=== PATIENT | female | born 1980 | race Caucasian/White ===

== ENCOUNTER 2020-12-16 14:27 | Outpatient (REF) | payer MEDICAID, SELFPAY ==
--- NOTE | ~2020-12-16 | US_ITS ---
EXAMINATION: PELVIC ULTRASOUND CLINICAL INFORMATION: Right lower quadrant pain COMPARISON: None TECHNIQUE: Transabdominal and transvaginal pelvic ultrasound was performed. Transvaginal exam was performed for better visualization of the uterus and ovaries. FINDINGS: The uterus is anteverted and measures 6.2 x 2.9 x 3.8 cm in dimension. No focal uterine lesion is seen. Endometrial thickness is normal measuring 0.3 cm. The ovaries are normal-appearing. The right ovary measures 1.4 x 1.3 x 1.1 cm and the left ovary measures 1.7 x 1.3 x 1.8 cm. There is no fluid in the pelvis. US/US pelvic and transvaginal IMPRESSION: Normal pelvic ultrasound.
== END 2020-12-16 14:28 | disposition home or self-care (01) ==
LOC: HO.US 14:27
PROVIDERS: Visit Provider Internal Medicine
DX: N92.0 Excessive and frequent menstruation with regular cycle (principal)
CPT/HCPCS: 76830; 76856

== ENCOUNTER 2021-01-06 15:00 | Outpatient (REF) | payer MEDICAID, SELFPAY ==
[2021-01-06 15:37] LABS: COVID-19 Test Negative (Negative); IDNOW Serial# 55D5AD1C
== END 2021-01-06 15:01 | disposition home or self-care (01) ==
LOC: HO.LAB 15:00
PROVIDERS: Visit Provider Internal Medicine
DX: Z20.822 Contact with and (suspected) exposure to COVID-19 (principal)
CPT/HCPCS: 36415; 87635; C9803

== ENCOUNTER 2021-06-30 14:38 | Outpatient (REF) | payer MEDICAID, SELFPAY | END 2021-06-30 14:39 | disposition home or self-care (01) | LOC: HO.LAB 14:38 | PROVIDERS: Visit Provider Internal Medicine | DX: Z20.822 Contact with and (suspected) exposure to COVID-19 (principal) | CPT/HCPCS: C9803; U0003; U0005 ==

== ENCOUNTER 2023-02-08 08:32 | Outpatient (REF) | payer MEDICAID, SELFPAY ==
--- NOTE | ~2023-02-08 | US_ITS ---
EXAMINATION: US RETROPERITONEAL LIMITED (RENAL ONLY) CLINICAL INFORMATION: Screening. COMPARISON: CT abdomen and pelvis without contrast dated 09/10/2019. Renal and bladder ultrasound dated 09/10/2019. TECHNIQUE: Real-time imaging of the kidneys. FINDINGS: RIGHT KIDNEY: 11.0 x 3.2 x 4.4 cm (SAG x AP x TRV). The kidney is normal in size, contour, and echogenicity. Renal cortical thickness is normal. No focal parenchymal lesions. Mild pelvocaliectasis. Nonobstructive calculus in the lower pole measuring 0.3 cm. LEFT KIDNEY: 10.8 x 5.6 x 5.0 cm (SAG x AP x TRV). The kidney is normal in size, contour, and echogenicity. Renal cortical thickness is normal. No calculi or focal parenchymal lesions. No hydronephrosis. Mild pelvic fullness without calyectasis. US/US renal BI IMPRESSION: 1. 0.3 cm calculus in the lower pole of the right kidney. 2. Mild right pelvocaliectasis. 3. Mild left pelviectasis. If an obstructive uropathy is suspected, recommend correlation with CT abdomen/pelvis.
--- NOTE | ~2023-02-08 | MM_ITS ---
EXAMINATION: MM SCREENING DIGITAL BREAST TOMOSYNTHESIS, BILATERAL CLINICAL INFORMATION: Screening. Asymptomatic. The lifetime risk of breast cancer based on the Tyrer-Cuzick Model is 14%. COMPARISON: Mammography: 08/23/2019; bilateral outside MLO views 11/05/2014 (CLAUDIA Hilliard) TECHNIQUE: Digital breast tomosynthesis is performed in both the craniocaudal and mediolateral oblique views along with computer-aided detection (CAD). Synthesized 2D images are generated from the tomosynthesis. FINDINGS: The breasts are heterogeneously dense, which may obscure small masses (ACR BI-RADS breast composition Category c). There are no significant masses, abnormal calcifications, or other abnormalities. Parenchymal pattern is similar to prior studies. There is no developing density or architectural abnormality. The axilla and skin contours are unremarkable. No significant changes. MM/MM tomosynthesis screening BI IMPRESSION: No mammographic evidence of malignancy. ASSESSMENT: BI-RADS 1: Negative RECOMMENDATION: Routine annual mammography screening. This patient's information was entered into a reminder system with a target due date for their next mammogram.
== END 2023-02-08 08:33 | disposition home or self-care (01) ==
LOC: HO.US 08:32
PROVIDERS: Visit Provider Student in an Organized Health Care Education/Training Program
DX: Z12.31 Encounter for screening mammogram for malignant neoplasm of breast (principal); N13.30 Unspecified hydronephrosis
CPT/HCPCS: 76775; 77063; 77067

== ENCOUNTER 2023-04-24 09:54 | Outpatient (REF) | payer MEDICAID, SELFPAY ==
[2023-04-24 11:19] LABS: MANUAL DIFF FLAG NO
[2023-04-24 12:11] LABS: Basophils Absolute Auto 0.1 X10*3/uL (0.0-0.2); Basophils Percent Auto 0.9 % (0-2); Eosinophils Absolute Auto 0.1 X10*3/uL (0.0-0.4); Hematocrit 39.5 % (37.0-47.0); Hemoglobin 12.9 g/dl (12.0-16.0); Imm Gran Abs Auto 0.02 X10*3/uL (0.00-0.03); Imm Gran Pct Auto 0.3 % (0.0-0.4); Lymphocytes Absolute Auto 1.6 X10*3/uL (1.2-4.9); Lymphocytes Percent Auto 28.3 % (20-40); Mean Corpuscular HGB Conc 32.7 g/dl (31.0-35.0); Mean Corpuscular Hemoglobin 28.8 pg (27.0-33.0); Mean Corpuscular Volume 88.2 fL (80.0-98.0); Mean Platelet Volume 9.9 fL (9.4-12.3); Monocytes Absolute Auto 0.5 X10*3/uL (0.1-1.2); Monocytes Percent Auto 7.9 % (2-11); Neutrophils Absolute Auto 3.6 x10*3/uL (2.0-8.3); Neutrophils Percent Auto 61.6 % (45-73); Platelet Count 220 X10*3/uL (160-400); Red Blood Count 4.48 X10*6/uL (4.20-5.50); Red Cell Distribution Width 13.2 % (11.0-16.0); White Blood Count 5.8 X10*3/uL (4.8-10.8)
[2023-04-24 12:25] LABS: Alanine Aminotransferase 12 U/L (0-31); Albumin Level 4.1 g/dL (3.5-5.0); Alkaline Phosphatase 65 U/L (39-117); Amylase 120 U/L (28-100); Anion Gap 12 (12-20); Aspartate Amino Transferase 18 U/L (5-31); Bilirubin Total 0.3 mg/dL (0.0-1.0); Blood Urea Nitrogen 12 mg/dL (9-16); Calcium 9.5 mg/dL (8.4-10.2); Carbon Dioxide 27 mmol/L (22-29); Chloride 106 mmol/L (96-108); Cholesterol 201 mg/dL (<200); Estimated Glomerular Filt Rate > 60; Glucose Random 81 mg/dL (60-115); HDL Cholesterol 54 mg/dL (>40); LDL Cholesterol Calculated 133 mg/dL (<100); Lipase 35 U/L (8-78); Potassium 4.1 mmol/L (3.3-5.1); Sodium 141 mmol/L (135-145); Total Protein 7.7 g/dL (6.5-8.0); Triglycerides 72 mg/dL (<150)
[2023-04-24 12:48] LABS: Syphilis Screen Nonreactive (Nonreactive)
== END 2023-04-24 09:55 | disposition home or self-care (01) ==
LOC: HO.HHCL 09:54
PROVIDERS: Visit Provider Student in an Organized Health Care Education/Training Program
DX: R10.13 Epigastric pain (principal)
CPT/HCPCS: 36415; 80053; 80061; 82150; 83690; 85025; 86780

== ENCOUNTER 2023-11-09 14:11 | Outpatient (REF) | payer MEDICAID, SELFPAY ==
--- NOTE | ~2023-11-09 | XR_ITS ---
EXAMINATION: XR HAND, RIGHT CLINICAL INFORMATION: Pain in first digit after a fall a month ago. COMPARISON: None available. TECHNIQUE: PA, lateral, and oblique views of the right hand. FINDINGS: Mild degenerative changes in the first carpometacarpal joint with joint space narrowing and hypertrophic change. Bone mineralization is normal. Alignment is preserved. No displaced fracture is appreciated. XR/XR hand RT 2V IMPRESSION: 1. Mild degenerative changes first carpometacarpal joint. 2. No displaced fracture appreciated.
== END 2023-11-09 14:12 | disposition home or self-care (01) ==
LOC: HO.HHCX 14:11
PROVIDERS: Visit Provider Student in an Organized Health Care Education/Training Program
DX: M79.641 Pain in right hand (principal)
CPT/HCPCS: 73120

== ENCOUNTER 2024-03-14 17:19 | Emergency (ER) | payer MEDICAID, SELFPAY ==
--- NOTE | ~2024-03-14 | CT_ITS ---
EXAMINATION: CT HEAD WITHOUT CONTRAST CLINICAL INFORMATION: Left-sided headache. COMPARISON: None available. TECHNIQUE: Contiguous axial imaging was performed from the skull base to vertex without intravenous administration of contrast. This CT examination was performed using dose optimization techniques as appropriate, variously including the following: *Automated exposure control *Adjustment of mA and/or kV according to patient size (this includes techniques or standardized protocols for targeted exams where dose is matched to indication/reason for exam; i.e. extremities or head) *Use of iterative reconstruction technique DLP: 566 mGy-cm FINDINGS: There is no acute intracranial hemorrhage. There is no evidence of acute/subacute cerebral or cerebellar infarction. There is no midline shift or mass effect. No extra-axial fluid collection. The ventricles are normal in size. The cerebellar tonsils are normally positioned. The visualized orbits are grossly normal in appearance. The calvarium is intact. The visualized paranasal sinuses and mastoid air cells are clear. CT/CT head/brain wo IV con IMPRESSION: No acute intracranial abnormality.
[2024-03-14 17:49] VITALS: BP 126/77; PULSE 74; RESP 14; TEMP 36.1; O2SAT 98; BMI 17.8
--- NOTE | 2024-03-14 17:51 | ED.HA ---
HPI - Headache General Chief Complaint: Headache Stated Complaint: facial pain Time Seen by Provider: 03/14/24 20:09 Source: patient, RN notes reviewed and old records reviewed Mode of arrival: ambulatory Limitations: no limitations History of Present Illness ED Provider: Maren HUNT Narrative: 43-year-old female presents for evaluation of left-sided headache Patient reports that she was resting watching TV about 3 hours prior to arrival when she noticed a developing left-sided headache She states the pain gradually worsened around the area of her left zoroastrianism She states that the pain radiates behind her left eye and towards her left ear She denies having had any headaches like this in the past Denies any visual changes. Denies any fevers, chills, respiratory symptoms Related Data Previous Rx's ?Medication ?Instructions ?Recorded vrooweqebb-lywlqzfeuznxt-ycxjrvpt 1 cap PO TID PRN headache #15 caps 03/14/24 50 mg-300 mg-40 mg capsule (Fioricet) Allergies Allergy/AdvReac Type Severity Reaction Status Date / Time No Known Allergies Allergy Verified 03/14/24 17:51 Review of Systems Constitutional: Constitutional: Denies body ache(s), Denies chills, Denies fever(s) and Reports headache(s) Eyes: Eyes: Denies blurry vision ENT: Denies vertigo, Denies dizziness, Reports otalgia, Reports headache(s) and Denies sore throat Cardiovascular: Cardiovascular: Denies chest pain and Denies dyspnea Respiratory: Respiratory: Denies cough and Denies dyspnea Gastrointestinal: Gastrointestinal: Denies abdominal pain, Denies nausea and Denies vomiting Musculoskeletal: Musculoskeletal: Denies back pain Integumentary/Breasts: Skin/Breast: Denies rash Neurologic: Denies vertigo, Denies dizziness and Reports headache(s) [facility] Social History Social History Smoked in Last 30 Days: Yes Use of substances other than those prescribed or required for medical reasons: Yes Substance Use Type: Marijuana Advance Directives: No Advance Directives Information Provided: No Do you have a plan to hurt others: No Plan Patient : No Physical Exam Vital Signs: Vital Signs: Last Vital Signs Temp 98.0 F 03/14/24 20:05 Pulse 58 03/14/24 20:05 Resp 18 03/14/24 20:05 BP 113/72 03/14/24 20:05 Pulse Ox 98 03/14/24 20:05 O2 Del Method Room Air 03/14/24 20:05 BMI result Body Mass Index 17.8 Const: General: healthy appearing, no acute distress, alert and awake Nutritional Appearance: well nourished Orientation/consciousness: patient oriented x3 HEENT: Head: Yes normocephalic and Yes atraumatic Eyes: Eyelids: Yes eyelids normal Conjunctivae: conjunctivae normal Sclerae: sclerae normal Corneas: corneas normal Pupils: Equal, round and reactive pupils present EOM: EOMs intact bilaterally Neck: Neck: Yes full ROM Resp: Effort & Inspection: normal respiratory effort, able to speak in complete sentences and not labored Skin: General skin exam: elasticity normal Neuro: General: patient oriented x3 Cranial nerves: Yes CN's II-XII intact bilaterally, Yes Equal, round and reactive pupils present and Yes Bilaterally intact EOM present Cognition (Neuro): normal cognition Course Course Course Narrative: This is a Rapid Medical Examination (RME) performed by Laith Arvizu PA-C in triage. Full HPI, ROS, assessment and treatment plan per primary provider in the Main ED. 43 y/o female presenting with acute onset of severe, sharp left sided headache that started 3-4 hours ago. Associated with nausea and vision changes in the left eye. Pain is in the left zoroastrianism, below the left eye, behind the left eye. No history of similar presentations in the past. tender to palption in the left zoroastrianism and left masxillary area. no apprecaited facial swelling, no dental tenderness or swelling. appears uncomfortable in triage. Plan: labs including ESR. imaging per primary provider. Reevaluation(s) Reevaluation #1: Patient's workup largely unremarkable, CT scan shows no acute intra cranial pathology.. On re-evaluation, the patient reports her headache has completely resolved. She is stable for discharge to follow-up with her PCP Time: 23:01 Medications Administered Discontinued Medications Generic Name Dose Route Start Last Admin Trade Name Freq PRN Reason Stop Dose Admin Diphenhydramine HCl 25 mg 03/14/24 20:22 03/14/24 20:59 Diphenhydramine Hcl 50 Mg/Ml Vial IVPUSH 03/14/24 20:23 25 mg ONCE ONE Administration Sodium Chloride 1,000 mls @ 999 mls/hr 03/14/24 20:30 03/14/24 21:02 Ns IV 03/14/24 21:30 999 mls/hr .Q1H1M ANTONI Administration Ketorolac Tromethamine 15 mg 03/14/24 20:22 03/14/24 20:58 Ketorolac Tromethamine 15 Mg/Ml Vial IVPUSH 03/14/24 20:23 15 mg ONCE ONE Administration Metoclopramide HCl 10 mg 03/14/24 20:22 03/14/24 21:01 Metoclopramide Hcl 10 Mg/2 Ml Vial IVPUSH 03/14/24 20:23 10 mg ONCE ONE Administration Medical Decision Making Medical Decision Making [facility] Narrative: 43-year-old female presents for evaluation of left-sided headache. Her physical exam is reassuring. She had a gradually worsening headache over the last 3-4 hours prior to arrival. She denies any history of previous headaches. There was no trauma. Plan for CT scan of the brain. An ESR was ordered which is within normal limits and less likely temporal arteritis. She has no findings of infectious process in the mouth, ear or sinuses. It is possible that she has TMJ dysfunction Differential Diagnosis Differential Diagnoses: The differential diagnosis associated with the presentation includes Otitis media Otitis externa Mastoiditis Acute headache Temporal arteritis Cluster headache Migraine headache Lab Data [facility] Lab Attestation statement: I reviewed the patient's lab results. No leukocytosis or significant anemia. No left shift, ESR is 15 within normal limits. No significant electrolyte abnormalities 03/14/24 18:06 03/14/24 18:06 Labs: Lab Results 03/14/24 Range/Units 18:06 WBC 5.7 (4.8-10.8) X10*3/uL RBC 4.17 L (4.20-5.50) X10*6/uL Hgb 12.3 (12.0-16.0) g/dl Hct 36.3 L (37.0-47.0) % MCV 87.1 (80.0-98.0) fL MCH 29.5 (27.0-33.0) pg MCHC 33.9 (31.0-35.0) g/dl RDW 12.9 (11.0-16.0) % Plt Count 240 (160-400) X10*3/uL MPV 9.4 (9.4-12.3) fL Immature Gran % (Auto) 0.4 (0.0-0.4) % Neut % (Auto) 61.2 (45-73) % Lymph % (Auto) 30.3 (20-40) % Dewey % (Auto) 6.7 (2-11) % Eos % (Auto) 0.7 (0-4) % Baso % (Auto) 0.7 (0-2) % Lymph # (Auto) 1.7 (1.2-4.9) X10*3/uL Dewey # (Auto) 0.4 (0.1-1.2) X10*3/uL Eos # (Auto) 0.0 (0.0-0.4) X10*3/uL Baso # (Auto) 0.0 (0.0-0.2) X10*3/uL Abs Immat Gran (auto) 0.02 (0.00-0.03) X10*3/uL Absolute Neuts (auto) 3.5 (2.0-8.3) x10*3/uL Absolute Nucleated RBC 0.000 (0.0-0.012) X10*3/uL Nucleated RBC % (auto) 0.0 (0.0-0.2) /100WBC ESR 15 (0-20) MM/HR Sodium 136 (135-145) mmol/L Potassium 3.9 (3.3-5.1) mmol/L Chloride 106 (96-108) mmol/L Carbon Dioxide 23 (22-29) mmol/L Anion Gap 11 L (12-20) BUN 16 (9-16) mg/dL Creatinine 1.05 (0.5-1.4) mg/dL Estim Creat Clear Calc 51.4 Estimated GFR 57 Random Glucose 102 (60-115) mg/dL Calcium 9.6 (8.4-10.2) mg/dL Magnesium 2.0 (1.6-2.6) mg/dL Total Bilirubin 0.3 (0.0-1.0) mg/dL Direct Bilirubin 0.1 (0.0-0.5) mg/dL AST 20 (5-31) U/L ALT 12 (0-31) U/L Alkaline Phosphatase 67 (39-117) U/L Total Protein 7.3 (6.5-8.0) g/dL Albumin 4.0 (3.5-5.0) g/dL Beta HCG, Quant < 2 mIU/mL Radiology Impression Discussion of test interpretation with radiology: I have reviewed the radiologist's reading. Radiologist Impression: CT/CT head/brain wo IV con IMPRESSION: No acute intracranial abnormality. Discharge Plan Discharge Clinical Impression: Headache Patient Disposition: Home, Self-Care Instructions: Acute Headache (ED) Additional Instructions: Your workup in the ER today was reassuring. This includes your blood work as well as her CT scan. You may use ibuprofen as needed for any further headaches. Use Fioricet for headaches not relieved by ibuprofen. This medication contains Tylenol, so do not take additional Tylenol if you are taking Fioricet Follow-up with your primary doctor, return for new or worsening symptoms Prescriptions: New tedveahrsh-pzpjbpregwlcn-ghmz [Fioricet] 50-300-40 mg capsule 1 cap PO TID PRN (Reason: headache) Qty: 15 0RF Print Language: Turkish
[2024-03-14 18:28] LABS: MANUAL DIFF FLAG NO
[2024-03-14 18:32] LABS: Basophils Percent Auto 0.7 % (0-2); Eosinophils Percent Auto 0.7 % (0-4); Hematocrit 36.3 % (37.0-47.0); Hemoglobin 12.3 g/dl (12.0-16.0); Imm Gran Abs Auto 0.02 X10*3/uL (0.00-0.03); Imm Gran Pct Auto 0.4 % (0.0-0.4); Lymphocytes Absolute Auto 1.7 X10*3/uL (1.2-4.9); Lymphocytes Percent Auto 30.3 % (20-40); Mean Corpuscular HGB Conc 33.9 g/dl (31.0-35.0); Mean Corpuscular Hemoglobin 29.5 pg (27.0-33.0); Mean Corpuscular Volume 87.1 fL (80.0-98.0); Mean Platelet Volume 9.4 fL (9.4-12.3); Monocytes Absolute Auto 0.4 X10*3/uL (0.1-1.2); Monocytes Percent Auto 6.7 % (2-11); Neutrophils Absolute Auto 3.5 x10*3/uL (2.0-8.3); Neutrophils Percent Auto 61.2 % (45-73); Platelet Count 240 X10*3/uL (160-400); Red Blood Count 4.17 X10*6/uL (4.20-5.50); Red Cell Distribution Width 12.9 % (11.0-16.0); White Blood Count 5.7 X10*3/uL (4.8-10.8)
[2024-03-14 18:43] LABS: Alanine Aminotransferase 12 U/L (0-31); Alkaline Phosphatase 67 U/L (39-117); Anion Gap 11 (12-20); Aspartate Amino Transferase 20 U/L (5-31); Bilirubin Direct 0.1 mg/dL (0.0-0.5); Bilirubin Total 0.3 mg/dL (0.0-1.0); Blood Urea Nitrogen 16 mg/dL (9-16); Calcium 9.6 mg/dL (8.4-10.2); Carbon Dioxide 23 mmol/L (22-29); Chloride 106 mmol/L (96-108); Creatinine Clr Calc Pharmacy 51.4; Estimated Glomerular Filt Rate 57; Glucose Random 102 mg/dL (60-115); Potassium 3.9 mmol/L (3.3-5.1); Sodium 136 mmol/L (135-145); Total Protein 7.3 g/dL (6.5-8.0)
[2024-03-14 19:46] LABS: Erythrocyte Sedimentation Rate 15 MM/HR (0-20)
[2024-03-14 20:05] VITALS: BP 113/72; PULSE 58; RESP 18; TEMP 36.7; O2SAT 98
--- NOTE | 2024-03-14 20:07 | PC.NURSE ---
ambulatory to bed. crying with tears/pain. states she smokes marajuana most morning. no neuro deficits. denies trauma/emotional upheaval.
[2024-03-14] MEDS: Ketorolac Tromethamine 15 MG/ML VIAL IVPUSH (20:58)
[2024-03-14] MEDS: diphenhydrAMINE HCL 50 MG/ML VIAL 25 MG IVPUSH (20:59)
[2024-03-14] MEDS: Metoclopramide HCl 10 MG/2 ML VIAL IVPUSH (21:01)
[2024-03-14] MEDS: 0.9 % Sodium Chloride 1,000 ML 999 ML IV (21:02)
[2024-03-14 21:15] LABS: HCG Quantitative < 2 mIU/mL
--- NOTE | 2024-03-14 23:14 | PC.NURSE ---
pt was sleeping shortly after pain medical officer psychiatry. skin pwd. NAD.
[2024-03-14 23:27] VITALS: BP 99/51; PULSE 80; RESP 16; TEMP 36.9; O2SAT 99
[2024-03-14 23:29] VITALS: BP 99/51; PULSE 80; RESP 17; TEMP 37.1; O2SAT 99
== END 2024-03-14 23:32 | disposition home or self-care (01) ==
PROVIDERS: Physician Assistant; Emergency Provider Emergency Medicine; PCP Student in an Organized Health Care Education/Training Program
DX: R51.9 Headache, unspecified (principal)
CPT/HCPCS: 36415; 70450; 80048; 80076; 83735; 84702; 85025; 85652; 96374; 96375; 99284; J1200; J1885; J2765

== ENCOUNTER 2025-01-13 12:48 | Outpatient (REF) | payer MEDICAID, SELFPAY ==
--- OUTSIDE RECORDS SUMMARY | 2025-01-13 13:06 | XMS_ITS | Clinical Summary ---
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 , 06/09/2021 Pneumococcal Vaccine: Pediatrics (0 to 5 Years) and At-Risk Patients (6 to 49) Years) Completed 01/20/2023 Hepatitis B Vaccines Completed 11/09/2023, 03/23/2023, 01/20/2023 Influenza Vaccine Completed 12/04/2024, 08/26/2020, 09/17/2019 HIB Vaccines Aged Out No longer eligi ble based on patient's age to complete this topic HPV Vaccines Aged Out No longer eligi ble based on patient's age to complete this topic Hepatitis A Vaccines Aged Out No long er eligible based on patient's age to complete this topic IPV Vaccines Aged Out No longer eligi ble based on patient's age to complete this topic Meningococcal Vaccine Aged Out No jose martin xochitl eligible based on patient's age to complete this topic RSV under 20 months Aged Out No longe r eligible based on patient's age to complete this topic Rotavirus Vaccines Aged Out No longer eligible based on patient's age to complete this topic Procedures Procedure Name Priority Date/Time Associated Diagnosis Comments POCT , URINE Routine 12/04/2024 11:55 AM EDT Absent periods LIPID PANEL, STANDARD Routine 04/24/2023 9:59 AM EDT Epigastric pain BI MAMMOGRAM SCREENING TOMOSYNTHESIS BILATERAL Routine 02/08/2023 9:45 AM EDT IMAGE-GUIDED PAP W/AGE BASED SCR PROTOCOLS Routine 02/02/2023 9:26 AM EDT Cervical cancer screening HEPATITIS C AB W/REFL TO HCV RNA, QN, PCR Routine 01/02/2023 1:05 PM EDT Health care maintenance HIV 1/2 ANTIGEN/ANTIBODY, FOURTH GENERATION W/RFL Routine 01/02/2023 1:05 PM EDT Health care maintenance from Last 3 Months or Most Recently Relevant to Health Maintenance Results * POCT Urine (12/04/2024 11:55 AM EDT) Preg Test, Ur Negative Negative, Indeterminate, None Detected, Invalid, Specimen unsatisfactory for evaluation, Weakly Positive QC Media Lot # [id number] Lot# Expiration Date [id number] Urine 12/04/2024 11:5 5 AM EDT us Elizabeth Maldonado MD POINT OF CARE SUZIE T ENTER/EDIT ORDERABLES Final Result * (ABNORMAL) Lipid Panel, Standard (04/24/2023 9:59 AM EDT) Triglycerides 72 <150 mg/dL [facility] Comment:Desirable Triglyceri de: less than 150 mg/dLBorderline High Triglyceride 150-199 mg/dLHigh Triglyceride: 200-499 mg/dLVery High Triglyceride: greater than or equal to 5OO mg/dL Cholesterol 201(H) <200 mg/dL [facility] Comment:Desirable Cholestero l: less than 200 mg/dLBorderline High Cholesterol: 200-239 mg/dLHigh Cholesterol: greater than 239 mg/dL LDL Cholesterol Calculated 133(H) <100 mg/dL [facility] Comment:Desirable LDL: less than 100 mg/dLNear Optimal/Above Optimal LDL: 110- 129 mg/dLBorderline High LDL: 130-159 mg/dLHigh LDL: 160-189 mg/dLVery High LDL: greater than or equal to 190 mg/dL HDL Cholesterol 54 >40 mg/dL [facility] Comment:Desirable HDL: great er than 40 mg/dL Note: This HDL assay may give artificially low results in patients with liver disease. Blood Venous blood specimen / Unknown 04/24/2023 9:59 AM EDT 04/24/2023 11:16 AM EDT us Elizabeth Maldonado MD LAB BLOOD ORDERAB LES Final Result [facility] [address] [place] [phone] * BI Mammogram Screening Tomosynthesis Bilateral (02/08/2023 9:45 AM EDT) Anatomical Region Laterality Modality Breast Bilateral Mammography 02/08/2023 9:45 AM EDT Narrative 02/10/2023 12:38 PM EDT ? [facility] ?[address] ?[place] [address] ? Mammography Report ? Signed ? Patient: Rosa Laboy,Devika ?MR#: M ?? [id number] ? : 1980 ?Acct:[id number] ? Age/Sex: 42 / F ?ADM Date: 02/08/23 ? Loc: HO.US ? Attending Dr: Elizabeth Maldonado MD ? Ordering Physician: Elizabeth Landrum MD ?Re ?? sults: 1Negative ? Date of Service: 02/08/23 ?Follow Up: 1 Year From Orig ?? inal Mammogram ? Procedure(s): MM tomosynthesis screening BI ?? Accession Number(s): [id number] ? cc: Elizabeth Landrum MD ? EXAMINATION: ?? MM SCREENING DIGITAL BREAST TOMOSYNTHESIS, BILATERAL ? CLINICAL INFORMATION: ? Screening. Asymptomatic. ? The lifetime risk of breast cancer based on the Tyrer-Cuzick Model is ?? 14%. ? COMPARISON: ?? Mammography: 08/23/2019; bilateral outside MLO views 11/05/2014 ?? (CLAUDIA Hilliard) ? TECHNIQUE: ?? Digital breast tomosynthesis is performed in both the craniocaudal and ?? mediolateral oblique views along with computer-aided detection (CAD). ?? Synthesized 2D images are generated from the tomosynthesis. ? FINDINGS: ?? The breasts are heterogeneously dense, which may obscure small masses ?? (ACR BI-RADS breast composition Category c). ? There are no significant masses, abnormal calcifications, or other ?? abnormalities. ??Parenchymal pattern is similar to prior studies. There ?? is no developing density or architectural abnormality. The axilla and ?? skin contours are unremarkable. No significant changes. ? MM/MM tomosynthesis screening BI ?? IMPRESSION: ?? No mammographic evidence of malignancy. ? ASSESSMENT: ? BI-RADS 1: Negative ? RECOMMENDATION: ?? Routine annual mammography screening. ? This patient's information was entered into a reminder system with a ?? target due date for their next mammogram. ? Dictated By: ?Carlos Eduardo Freeman MD ? Signed By: ?<Electronically signed by Carlos Eduardo Freeman MD in OV> ?02/10/23 1235 ? DD/ 0945 ? TD/TT: ? Cream Ripener: CASTILLO ? Procedure Note Donmicheal, Image - 03/02/2023 [place] [address] Mammography Report Signed Patient: Drake Reyes#: M [id number] : 1980Acct:[id number] Age/Sex: 42 / FADM Date: 02/08/23 Loc: HO. Attending Dr: Elizabeth Maldonado MD Ordering Physician: Elizabeth Landrume sults: 1Negative Date of Service: 02/08/23Follow Up: 1 Year From Orig inal Mammogram Procedure(s): MM tomosynthesis screening BI Accession Number(s): [id number] cc: Elizabeth Landrum MD EXAMINATION: MM SCREENING DIGITAL BREAST TOMOSYNTHESIS, BILATERAL CLINICAL INFORMATION: Screening. Asymptomatic. The lifetime risk of breast cancer based on the Tyrer-Cuzick Model is 14%. COMPARISON: Mammography: 08/23/2019; bilateral outside MLO views 11/05/2014 ([place]) TECHNIQUE: Digital breast tomosynthesis is performed in both the craniocaudal and mediolateral oblique views along with computer-aided detection (CAD). Synthesized 2D images are generated from the tomosynthesis. FINDINGS: The breasts are heterogeneously dense, which may obscure small masses (ACR BI-RADS breast composition Category c). There are no significant masses, abnormal calcifications, or other abnormalities. Parenchymal pattern is similar to prior studies. There is no developing density or architectural abnormality. The axilla and skin contours are unremarkable. No significant changes. MM/MM tomosynthesis screening BI IMPRESSION: No mammographic evidence of malignancy. ASSESSMENT: BI-RADS 1: Negative RECOMMENDATION: Routine annual mammography screening. This patient's information was entered into a reminder system with a target due date for their next mammogram. Dictated By: Carlos Eduardo Freeman MD Signed By: <Electronically signed by Carlos Eduardo Freeman MD in OV> 02/10/23 1235 DD/ 0945 TD/TT: Cream Ripener: CASTILLO [facility] External Provider IMG BI PROCEDURES Final Result * Image-Guided Pap with Age-Based Screening Protocols (02/02/2023 9:26 AM EDT) Comment [employer] Comment: This order for age-based cervical cancer and STI screening follows ACOG guidelines(PB 168, 140, DOZ087). See individual assays for performing site location. Clinical Information: None given [facility] LMP: NONE GIVEN [facility] Prev. PAP: NONE GIVEN [facility] Prev. BX: NONE GIVEN [facility] SOURCE: None given [facility] Statement Of Adequacy: [facility] Comment: Satisfactory for evaluation. Endocervical/transformation zone component present. Interpretation/ Result: Negative for intraepithelial lesion or malignancy. [employer] Infection [facility] Comment: Trichomonas vaginalis identified. Shift in vaginal eulalia suggestive of bacterial vaginosis. COMMENT: This Pap test has been evaluated with computer assisted technology. [facility] Cytotechnologis t: [facility] Comment: KR, CT(ASCP) CT screening location: [address] ??[address] Review Cytotechnologis t: [facility] [place] [facility] Comment: MPG, CT(ASCP) CT screening location: [address] ??[address] (Always Message) [facility] Comment: EXPLANATORY NOTE: The Pap is a screening test for cervical cancer. It is not a diagnostic test and is subject to false negative and false positive results. It is most reliable when a satisfactory sample, regularly obtained, is submitted with relevant clinical findings and history, and when the Pap result is evaluated along with historic and current clinical information. HPV nRNA E6/E7 Not Detected Not Detected [facility] Comment: Methodology: Crop Supervisor-Mediated Amplification This assay detects E6/E7 viral messenger RNA (mRNA) from 14 high-risk HPV types (16,18,31,33,35,39,45,51,52,56,58,59,66,68). Cervical sources are required for HPV testing. If a vaginal source from a patient who has had a total hysterectomy with removal of cervix was submitted, please contact the testing laboratory for alternative testing options. For additional information, please refer to http://education.Tykli/faq/GWK696a1 (This link if provided for information/ educational purposes only.) Pap Vial 02/02/2023 9:26 AM EDT 02/03/2023 2:54 AM EDT us Breanna Feliz [facility] LAB BLOOD ORDERABLES Rosalie davis Result [facility] [place] [address], [place] [address] [facility] [address] [place] [address] * Hepatitis C Antibody with Reflex to HCV, RNA, Quantitative, Real-Time PCR (01/02/2023 1:05 PM EDT) Hepatitis C Antibody NON-REACT YANETH NON-REACT YANETH [facility] [place] [employer] Index 0.08 <1.00 [facility] Comment: HCV antibody was non-reactive. There is no laboratory evidence of HCV infection. In most cases, no further action is required. However, if recent HCV exposure is suspected, a test for HCV RNA (test code 00541) is suggested. For additional information please refer to http://Film Fresh.Tykli/faq/UEK02j3 (This link is being provided for informational/ educational purposes only.) Blood Venous blood specimen / Unknown 01/02/2023 1:05 PM EDT 01/02/2023 1:07 PM EDT Narrative [facility] - 01/08/2023 11:26 AM EDT FASTING:YES FASTING: YES Elizabeth Maldonado MD LAB BLOOD ORDERAB LES Final Result [facility] [address], [place] [address] [facility] [place] [employer] [address] [place] [address] * HIV-1/2 Antigen and Antibodies, Fourth Generation, with Reflexes (01/02/2023 1:05 PM EDT) [facility] HIV Antigen/Antibody, 4th Generation NON-REAC TIVE NON-REAC TIVE [facility] [place] [facility] Comment: HIV-1 antigen and HIV-1/HIV-2 antibodies were not detected. There is no laboratory evidence of HIV infection. PLEASE NOTE: This information has been disclosed to you from records whose confidentiality may be protected by state law. ??If your state requires such protection, then the state law prohibits you from making any further disclosure of the information without the specific written consent of the person to whom it pertains, or as otherwise permitted by law. A general authorization for the release of medical or other information is NOT sufficient for this purpose. ?? For additional information please refer to http://Film Fresh.Tykli/faq/ZJH733 (This link is being provided for informational/ educational purposes only.) The performance of this assay has not been clinically validated in patients less than 2 years old. Blood Venous blood specimen / Unknown 01/02/2023 1:05 PM EDT 01/02/2023 1:07 PM EDT Narrative [facility] - 01/08/2023 11:26 AM EDT FASTING:YES FASTING: YES Elizabeth Maldonado MD LAB BLOOD ORDERAB LES Final Result [facility] [address], [place] [address] [facility] [address] [place] [address] from Last 3 Months or Most Recently Relevant to Health Maintenance Insurance [employer] Care Teams Automatic Outsole Cutter Relationship Specialty Start Date End Date Elizabeth Landrum MD [address] [place] [phone] PCP - General Internal Medicine 12/15/22
--- OUTSIDE RECORDS SUMMARY | 2025-01-13 13:06 | XMS_ITS | Encounter Summary ---
Author Organization [employer] Address [address] [place] [address] [place] [address] Care Team Providers Care Operations Engineer Name Role Phone Elizabeth Landrum MD Primary Care Pro vider Encounter Details Date Type Department Care Team ([facility] st Contact Info) Description 11/28/2023 Telephone [facility] [address] [place], [place] [phone] Elizabeth Landrum MD [address] [place] [address] Social History Tobacco Use Types Packs/Day Years Used Date Smoking Tobacco: Every Day Cigarettes Passive Smoke Exposure: Current Smokeless Tobacco: Never Comments:Smoking since 16 y of age , total of 26 years -1 PQT a day-PQT a year is 26 Alcohol Use Standard Drinks/Week Comments Not Currently [...] Orientation Straight 11/10/2023 5: 59 AM EST documented as of this encounter Miscellaneous Notes * Telephone Encounter - Janette Jimenez - 11/28/2023 3:11 PM EDT Tc from pt calling in regards to CT of chest and abdomin. [facility] will not schedule pt due to issues with order. No other details provided. documented in this encounter Plan of Treatment Upcoming Encounters Date Type Department Care Team (Late st Contact Info) Description 01/24/2025 9:30 AM EDT Office Visit [facility] [address] [place] [phone] Elizabeth Landrum MD [address] [place] [phone] documented as of this encounter Visit Diagnoses Not on filedocumented in this encounter Additional Health Concerns Assessment Noted Time PHQ-9 Depression Total Score: 4 04/24/20 9:10 AM EDT documented as of this encounter Care Teams Operations Engineer Relationship Specialty Start Date End Date Elizabeth Landrum MD [address] [place] [phone] PCP - General Internal Medicine 12/15/22 documented as of this encounter
[2025-01-13 16:20] LABS: Hematocrit 39.9 % (37.0-47.0); Hemoglobin 13.1 g/dl (12.0-16.0); Mean Corpuscular HGB Conc 32.8 g/dl (31.0-35.0); Mean Corpuscular Volume 88.5 fL (80.0-98.0); Mean Platelet Volume 9.7 fL (9.4-12.3); Platelet Count 267 X10*3/uL (160-400); Red Blood Count 4.51 X10*6/uL (4.20-5.50); Red Cell Distribution Width 13.6 % (11.0-16.0); White Blood Count 5.6 X10*3/uL (4.8-10.8)
[2025-01-13 16:29] LABS: Estimated Average Glucose 120 mg/dL; Hemoglobin A1C 135.7615 umol/L; Hemoglobin A1c % 5.8 % (<6.0); Total Hemoglobin (HGBA1C) 3411.0789 umol/L
[2025-01-13 16:43] LABS: Alanine Aminotransferase 17 U/L (0-31); Anion Gap 13 (12-20); Aspartate Amino Transferase 32 U/L (5-31); Bilirubin Total 0.4 mg/dL (0.0-1.0); Blood Urea Nitrogen 21 mg/dL (9-16); C Reactive Protein 0.12 mg/dL (< or = 0.50); Calcium 9.2 mg/dL (8.4-10.2); Carbon Dioxide 24 mmol/L (22-29); Chloride 105 mmol/L (96-108); Cholesterol 208 mg/dL (<200); Estimated Glomerular Filt Rate > 60; Glucose Random 83 mg/dL (60-115); HDL Cholesterol 56 mg/dL (>40); LDL Cholesterol Calculated 136 mg/dL (<100); Sodium 138 mmol/L (135-145); Total Protein 7.5 g/dL (6.5-8.0); Triglycerides 81 mg/dL (<150)
[2025-01-13 16:48] LABS: Rheumatoid Factor < 13.0 IU/mL (<15.0)
[2025-01-13 16:54] LABS: Alkaline Phosphatase 72 U/L (39-117)
[2025-01-13 17:06] LABS: TSH reflex Free T4 0.42 uIU/mL (0.32-4.0); Vitamin D 25-OH Total 18.3 ng/mL (>30)
[2025-01-13 17:10] LABS: Erythrocyte Sedimentation Rate 27 MM/HR (0-20)
[2025-01-13 18:58] LABS: CT PCR NOT DETECTED (Not Detect.); NG PCR NOT DETECTED (Not Detect.)
[2025-01-14 04:29] LABS: Lutenizing Hormone 87.8 mIU/mL
[2025-01-14 07:27] LABS: Syphilis Screen Nonreactive (Nonreactive)
[2025-01-14 08:02] LABS: HBS Num1 0.83 mIU/mL (0-7.99); HBc Num1 0.25 S/CO (0.00-0.79); HIV AB/AG Nonreactive (Nonreactive); HIV Num 1 0.08 S/CO (0.00-0.99); Hepatitis B Core Antibody Nonreactive (Nonreactive); Hepatitis B Surface Antigen Negative (Negative); ~HepC Num1 0.25 S/CO (0.00-0.79); ~Hepatitis B Surface Antibody NONREACTIVE (Nonreactive); ~Hepatitis C Antibody Nonreactive (Nonreactive)
[2025-01-16 13:09] LABS: Cyclic Citrullinated Peptide <16 UNITS
[2025-01-25 08:23] LABS: Estradiol Ultra Sensitive 3 pg/mL
== END 2025-01-13 12:49 | disposition home or self-care (01) ==
LOC: HO.HHCL 12:48
PROVIDERS: Visit Provider Student in an Organized Health Care Education/Training Program
DX: Z00.00 Encounter for general adult medical examination without abnormal findings (principal)
CPT/HCPCS: 80053; 80061; 82306; 82670; 83001; 83002; 83036; 84443; 85027; 85652; 86140; 86200; 86431; 86704; 86706; 86780; 86803; 87340; 87389; 87491; 87591